=== PATIENT | female | born 1975 | race African-American/Black ===

== ENCOUNTER 2017-09-03 22:06 | Emergency (ER) | payer OTHER ==
[~2017-09-03] VITALS: Ht 170.2 cm; Wt 75.0 kg
[2017-09-03] MEDS ORDERED: LIDOCAINE HCL/PF 1% 2 ML VIAL IM ONE (22:30)
[2017-09-03] MEDS ORDERED: KETOROLAC TROMETHAMINE 60 MG/2 ML VIAL IM ONE (22:30)
[2017-09-03] MEDS ORDERED: CefTRIAXone SODIUM 1 GM/VIAL IM ONE (22:30)
[2017-09-03] MEDS ORDERED: HYDROCODONE/ACETAMINOPHEN 5-325 MG TABLET PO ONE (23:30)
[2017-09-04 01:18] VITALS: BP 119/74
== END 2017-09-04 01:43 | disposition home or self-care (01) ==
LOC: EMS 22:07
DX: K04.7 Periapical abscess without sinus (principal)
CPT/HCPCS: 96372; 99284; J0696; J1885; J3490

== ENCOUNTER 2024-01-12 08:12 | Emergency (ER) | payer MEDICAID, OTHER ==
[~2024-01-12] VITALS: Ht 172.7 cm; Wt 100.0 kg
[2024-01-12 08:20] VITALS: TEMP 98.4
[2024-01-12] MEDS: LIDOCAINE 1% 10 ML VIAL SQ ONE (08:39)
[2024-01-12] MEDS ORDERED: DOXY-354 PO (08:53)
[2024-01-12] MEDS ORDERED: OxyCODONE HCL/ACETAMINOPHEN 5-325 MG TABLET PO ONE (09:00)
[2024-01-12] MEDS: IBUPROFEN 400 MG TABLET PO ONE (09:05)
[2024-01-12] MEDS: DOXYCYCLINE HYCLATE 100 MG TABLET PO ONE (09:05)
[2024-01-12 09:30] VITALS: BP 128/80; PULSE 80; RESP 16; O2SAT 98
== END 2024-01-12 09:51 | disposition home or self-care (01) ==
LOC: EMS 08:12
DX: L02.211 Cutaneous abscess of abdominal wall (principal)
CPT/HCPCS: 99283; 10060; J3490

== ENCOUNTER 2024-01-14 12:01 | Emergency (ER) | payer MEDICAID ==
[~2024-01-14] VITALS: Ht 172.7 cm; Wt 81.8 kg
[~2024-01-14 12:01] MED LIST: DOXY-354 PO
[2024-01-14 12:14] VITALS: BP 147/86; PULSE 83; RESP 18; TEMP 98.4; O2SAT 99
[2024-01-14] MEDS: BACITRACIN 28 GM OINTMENT TP ONE (12:41)
== END 2024-01-14 13:25 | disposition home or self-care (01) ==
LOC: EMS 12:01
DX: S20.302D Unspecified superficial injuries of left front wall of thorax, subsequent encounter (principal); Z48.817 Encounter for surgical aftercare following surgery on the skin and subcutaneous tissue; W19.XXXD Unspecified fall, subsequent encounter
CPT/HCPCS: 99282; Z7502; Z7610

== ENCOUNTER 2024-08-15 19:14 | Emergency (ER) | payer MEDICAID ==
[~2024-08-15] VITALS: Ht 172.7 cm; Wt 86.4 kg
[2024-08-15 19:20] VITALS: TEMP 98.2
[2024-08-15 20:38] LABS: BASOPHILS % (AUTO) 0.6 % (0.0-2.0); EOSINOPHILS % (AUTO) 3.9 % (1.0-6.0); HEMATOCRIT 36.3 % (36-46); HEMOGLOBIN 11.4 g/dL (12.0-16.0); LYMPHOCYTES # (AUTO) 2.3 K/uL (1.0-4.8); LYMPHOCYTES % (AUTO) 42.9 % (22.0-44.0); MEAN CORPUSCULAR HEMOGLOBIN 27.1 pg (26.0-34.0); MEAN CORPUSCULAR HGB CONC 31.5 G/dL (31.0-37.0); MEAN CORPUSCULAR VOLUME 86 fL (80-100); MONOCYTES # (AUTO) 0.4 K/uL (0.1-1.0); MONOCYTES % (AUTO) 6.9 % (2.0-9.0); NEUTROPHILS # (AUTO) 2.4 K/uL (1.8-7.7); NEUTROPHILS % (AUTO) 45.7 % (40.0-70.0); PLATELET COUNT (AUTO) 292 K/uL (150-450); RED BLOOD CELL COUNT(AUTO) 4.21 MIL/uL (4.00-5.20); RED CELL DISTRIBUTION WIDTH 13.8 % (11.5-14.5); WHITE BLOOD COUNT (AUTO) 5.3 K/uL (4.5-11.0)
[2024-08-15 20:45] LABS: ANION GAP 4 mmol/L (8-16); CALCIUM, TOTAL 9.1 mg/dL (8.8-10.5); CARBON DIOXIDE 32 mmol/L (22-29); CHLORIDE 103 mmol/L (98-107); CREATININE 0.68 mg/dL (0.60-1.30); GLOMERULAR FILTR. RATE CALC > 60 mL/min (>60); GLUCOSE,RANDOM 97 mg/dL (70-110); POTASSIUM 3.9 mmol/L (3.5-5.1); SODIUM SERUM 139 mmol/L (136-145); UREA NITROGEN, BLOOD 17 mg/dL (7-18)
[2024-08-15] MEDS: TraMADol HCL 50 MG TABLET PO ONE (20:56)
[2024-08-15 20:57] LABS: TROPONIN I-HIGH SENSITIVITY 5 ng/L (<51)
[2024-08-15] MEDS: KETOROLAC TROMETHAMINE 30 MG/ML VIAL IM ONE (23:14)
[2024-08-16 00:07] VITALS: BP 179/91; PULSE 67; RESP 18; O2SAT 100
== END 2024-08-16 01:08 | disposition home or self-care (01) ==
LOC: EMS 19:14
DX: M79.604 Pain in right leg (principal); Z79.899 Other long term (current) drug therapy
CPT/HCPCS: 99283; 80048; 83880; 84484; 85025; 36415; 96372; J1885